=== PATIENT | male | born 1935 | race Caucasian/White ===

== ENCOUNTER → 2016-07-21 | Outpatient (CLI) | payer MEDICARE, OTHER ==
--- NOTE | 2016-07-21 11:52 | RADRPT ---
PROCEDURE: XR left knee. CLINICAL INDICATION: Knee pain TECHNIQUE: AP weightbearing, PA weightbearing, lateral weight bearing and sunrise views are availa ble for review. COMPARISON: 12/18/2014 FINDINGS: There is severe osteoarthrosis involving the medial tibial femoral compartment and mild osteoarthros is involving the patellofemoral compartment. This is associated with joint space narrowing, subchond ral sclerosis and osteophytosis. There is otherwise normal mineralization, architecture and alignment. No fractures are identified. No osseous lesions are identified. The soft tissues are unremarkable. IMPRESSION: Severe osteoarthrosis involving the medial tibial femoral compartment and mild osteoarthrosis involv ing the patellofemoral compartment. RPTAT: [facility] .Roderick Mason MD, MD Date Time Electronically viewed and signed by .Roderick Mason MD, on 07/21/2016 11:52 .B/
== END | disposition home or self-care (01) ==
LOC: HKI 08:33
PROVIDERS: ATTEND Orthopaedic Surgery
DX: M17.12 Unilateral primary osteoarthritis, left knee (principal); M25.562 Pain in left knee
CPT/HCPCS: 20610; 73564; G0463; J7327